=== PATIENT | male | born 1945 | race Two or more races ===

== ENCOUNTER 2025-03-08 00:14 | Inpatient (IN) | payer MEDICARE, OTHER ==
[~2025-03-08] VITALS: Ht 157.5 cm; Wt 68.0 kg
[2025-03-08] VITALS (50 sets, daily range): BP systolic 84–124; BP diastolic 48–78; TEMP 98–98.7; O2SAT 86–100
[2025-03-08 00:39] LABS: PLATELET COUNT (AUTO) 367 K/uL (150-450); RED BLOOD CELL COUNT(AUTO) 3.76 MIL/uL (4.5-6.0); RED CELL DISTRIBUTION WIDTH 13.6 % (11.5-15.0); WHITE BLOOD COUNT (AUTO) 13.6 K/uL (4.3-11.0)
[2025-03-08 00:51] LABS: CALCIUM, SERUM 8.3 mg/dL (8.5-10.1); CREATININE 1.3 mg/dL (0.6-1.3); SODIUM SERUM 138 mmol/L (136-145); UREA NITROGEN, BLOOD 43 mg/dL (7-18)
[2025-03-08 00:57] LABS: ASPARTATE AMINOTRANSFERASE 61 U/L (15-37); TOTAL PROTEIN, SERUM 7.1 g/dL (6.4-8.2)
[2025-03-08] MEDS: IPRATROPIUM NEB FS 0.5 MG/2.5 ML AMPUL.NEB NEB ONE (01:00)
[2025-03-08] MEDS: ALBUTEROL FS 2.5 MG/3 ML VIAL.NEB NEB ONE (01:00)
[2025-03-08] MEDS ORDERED: CEFTRIAXONE 1GM BAG (ER ONLY) 50 ML IV ONE (01:27)
[2025-03-08] MEDS ORDERED: DOXYCYCLINE 100 MG VIAL ONE (01:28)
[2025-03-08] MEDS: IV NS 0.9% 1,000 ML BAG IV ONE (01:44)
[2025-03-08] MEDS: CEFTRIAXONE 1 G in IV D5W 50 ML IV ONE (01:44)
[2025-03-08] MEDS ORDERED: IPRATROPIUM NEB FS 0.5 MG/2.5 ML AMPUL.NEB ONE (01:52)
[2025-03-08] MEDS ORDERED: ALBUTEROL FS 2.5 MG/3 ML VIAL.NEB ONE (01:52)
[2025-03-08] MEDS: DOXYCYCLINE 100 MG in IV D5W 100 ML IV ONE (02:00)
[2025-03-08] MEDS ORDERED: SENN-261 PO (04:42)
[2025-03-08] MEDS ORDERED: FERR324T4 PO (04:42)
[2025-03-08] MEDS ORDERED: ERGO500093 PO (04:42)
[2025-03-08] MEDS ORDERED: ASCO500C18 PO (04:42)
[2025-03-08] MEDS ORDERED: AMLO2.5T4 PO (04:42)
[2025-03-08] MEDS ORDERED: ASPI-1420 PO (04:42)
[2025-03-08] MEDS ORDERED: ATOR40TA PO (04:42)
[2025-03-08] MEDS ORDERED: MAG HYDROX/AL HYDROX/SIMETH 30 ML UDC PO PRN (06:30)
[2025-03-08] MEDS ORDERED: DOSING PER PHARMACY-CEFEPIME IVPB XX PRN (06:30)
[2025-03-08] MEDS ORDERED: ONDANSETRON HCL/PF 4 MG/2 ML VIAL IVP PRN (06:30)
[2025-03-08] MEDS ORDERED: MAGNESIUM HYDROXIDE 30 ML UDC PO PRN (06:30)
[2025-03-08] MEDS ORDERED: IPRATROPIUM NEB FS 0.5 MG/2.5 ML AMPUL.NEB NEB PRN (06:30)
[2025-03-08] MEDS ORDERED: ALBUTEROL FS 2.5 MG/3 ML VIAL.NEB NEB PRN (06:30)
[2025-03-08] MEDS ORDERED: ENOXAPARIN SODIUM 40 MG/0.4 ML DISP.SYRIN SQ SCH (07:00)
[2025-03-08] MEDS ORDERED: ALBUTEROL FS 2.5 MG/3 ML VIAL.NEB NEB SCH (07:35)
[2025-03-08] MEDS: IPRATROPIUM NEB FS 0.5 MG/2.5 ML AMPUL.NEB NEB SCH (07:35)
[2025-03-08] MEDS: CEFEPIME 2 GM in IV D5W 100 ML IV SCH (08:49)
[2025-03-08 09:07] LABS: ABG BASE EXCESS -3.7 mmol/L (-2.0-3.0); ABG OXYGEN SATURATION 84.6 % (94.0-98.0); ABG PCO2 29.4 mmHg (35.0-48.0); ABG PH 7.440 (7.350-7.450); ABG PO2 48.5 mmHg (83.0-108.0); ABG TOTAL HEMOGLOBIN 10.4 G/dL (13.5-17.5); FLOW, BLOOD GAS 40.00 L/min (0.00-30.00); FRACTIONATED INSPIRED OXYGEN 100.0 %
[2025-03-08] MEDS: DOXYCYCLINE 100 MG in IV D5W 100 ML IV SCH (09:34)
[2025-03-08 10:10] LABS: IRON, SERUM 26.0 ug/dl (50-175)
[2025-03-08 10:14] LABS: ABG BASE EXCESS -4.4 mmol/L (-2.0-3.0); ABG OXYGEN SATURATION 93.2 % (94.0-98.0); ABG PCO2 29.1 mmHg (35.0-48.0); ABG PH 7.431 (7.350-7.450); ABG PO2 70.5 mmHg (83.0-108.0); ABG TOTAL HEMOGLOBIN 10.6 G/dL (13.5-17.5); FLOW, BLOOD GAS 40.00 L/min (0.00-30.00); FRACTIONATED INSPIRED OXYGEN 100.0 %; SITE, ABG RIGHT RADIAL
[2025-03-08 10:52] LABS: LDL 26.0 mg/dL (0-99)
[2025-03-08] MEDS: IV NS 0.9% 1,000 ML IV PRN (14:49)
[2025-03-09] VITALS (43 sets, daily range): BP systolic 98–129; BP diastolic 52–95; TEMP 98–98.8; O2SAT 94–100
[2025-03-09 04:32] LABS: PLATELET COUNT (AUTO) 328 K/uL (150-450); RED BLOOD CELL COUNT(AUTO) 3.35 MIL/uL (4.5-6.0); RED CELL DISTRIBUTION WIDTH 13.3 % (11.5-15.0); WHITE BLOOD COUNT (AUTO) 14.8 K/uL (4.3-11.0)
[2025-03-09 04:44] LABS: INR 1.06 (0.91-1.10)
[2025-03-09 04:46] LABS: CREATINE KINASE, TOTAL 35.0 U/L (39-308)
[2025-03-09 04:47] LABS: ASPARTATE AMINOTRANSFERASE 37.0 U/L (15-37); CALCIUM, SERUM 8.3 mg/dL (8.5-10.1); CREATININE 0.9 mg/dL (0.6-1.3); PHOSPHORUS 3.7 mg/dL (2.5-4.9); SODIUM SERUM 140.0 mmol/L (136-145); TOTAL PROTEIN, SERUM 6.5 g/dL (6.4-8.2); UREA NITROGEN, BLOOD 46.0 mg/dL (7-18)
[2025-03-09 08:11] LABS: ABG BASE EXCESS -4.9 mmol/L (-2.0-3.0); ABG OXYGEN SATURATION 96.7 % (94.0-98.0); ABG PCO2 29.2 mmHg (35.0-48.0); ABG PH 7.422 (7.350-7.450); ABG PO2 95.7 mmHg (83.0-108.0); ABG TOTAL HEMOGLOBIN 10.6 G/dL (13.5-17.5); FLOW, BLOOD GAS 40.00 L/min (0.00-30.00); FRACTIONATED INSPIRED OXYGEN 100.0 %; SITE, ABG RIGHT RADIAL
[2025-03-09] MEDS: ACETYLCYSTEINE 10% SOLN 400 MG/4 ML VIAL NEB SCH (14:58)
[2025-03-09 18:13] LABS: PROTEIN, BODY FLUID 4.2 G/DL
[2025-03-09 20:05] LABS: APPEARANCE,SPUN,BODY FLUID CLEAR (CLEAR); TOTAL VOLUME,BODY FLUID 165 mL; WBC, BODY FLUID 8719 /cu. mm. (0-200)
[2025-03-09 20:53] LABS: MONOCYTES,BODY FLUID 5 %
[2025-03-10] VITALS (39 sets, daily range): BP systolic 92–133; BP diastolic 49–98; TEMP 98–98.4; O2SAT 92–100
[2025-03-10 04:53] LABS: PLATELET COUNT (AUTO) 306 K/uL (150-450); RED BLOOD CELL COUNT(AUTO) 3.68 MIL/uL (4.5-6.0); RED CELL DISTRIBUTION WIDTH 14.0 % (11.5-15.0); WHITE BLOOD COUNT (AUTO) 17.4 K/uL (4.3-11.0)
[2025-03-10 04:56] LABS: INR 1.02 (0.91-1.10)
[2025-03-10 05:06] LABS: ASPARTATE AMINOTRANSFERASE 31.0 U/L (15-37); CALCIUM, SERUM 8.6 mg/dL (8.5-10.1); CREATININE 0.7 mg/dL (0.6-1.3); PHOSPHORUS 3.2 mg/dL (2.5-4.9); SODIUM SERUM 144.0 mmol/L (136-145); TOTAL PROTEIN, SERUM 6.3 g/dL (6.4-8.2); UREA NITROGEN, BLOOD 42.0 mg/dL (7-18)
[2025-03-10 05:12] LABS: PTH, INTACT 23 pg/mL (15-65)
[2025-03-10] MEDS: Z GUARD REMEDY 4 OZ OINT TP SCH (09:41)
[2025-03-10 15:07] LABS: *SPE A/G RATIO 0.5 (0.7-1.7); *SPE ALBUMIN 1.8 g/dL (2.9-4.4); *SPE ALPHA-1-GLOBULIN 0.6 g/dL (0.0-0.4); *SPE ALPHA-2-GLOBULIN 1.2 g/dL (0.4-1.0); *SPE BETA GLOBULIN 0.9 g/dL (0.7-1.3); *SPE GLOBULIN, TOTAL 3.7 g/dL (2.2-3.9); *SPE M-SPIKE 0.2 g/dL (Not Observed); *SPE PROTEIN TOTAL 5.5 g/dL (6.0-8.5); *SPEGAMMA GLOBULIN 1.0 g/dL (0.4-1.8)
[2025-03-10] MEDS: IV NS 0.9% 250 ML IV PRN (22:10)
[2025-03-11] VITALS (25 sets, daily range): BP systolic 88–137; BP diastolic 49–97; TEMP 98.3; O2SAT 93–100
[2025-03-11 04:35] LABS: PLATELET COUNT (AUTO) 281 K/uL (150-450); RED BLOOD CELL COUNT(AUTO) 3.48 MIL/uL (4.5-6.0); RED CELL DISTRIBUTION WIDTH 13.8 % (11.5-15.0); WHITE BLOOD COUNT (AUTO) 14.3 K/uL (4.3-11.0)
[2025-03-11 04:45] LABS: INR 1.14 (0.91-1.10)
[2025-03-11 04:54] LABS: ASPARTATE AMINOTRANSFERASE 20.0 U/L (15-37); CALCIUM, SERUM 8.3 mg/dL (8.5-10.1); CREATININE 0.7 mg/dL (0.6-1.3); PHOSPHORUS 2.6 mg/dL (2.5-4.9); SODIUM SERUM 143.0 mmol/L (136-145); TOTAL PROTEIN, SERUM 5.9 g/dL (6.4-8.2); UREA NITROGEN, BLOOD 36.0 mg/dL (7-18)
[2025-03-11 05:42] LABS: LYMPHOCYTES % (MANUAL) 6 % (16-48); MONOCYTES % (MANUAL) 4 % (0-11.0); NEUTROPHILS % (MANUAL) 90 (42-76); PLATELET ESTIMATE ADEQUATE
[2025-03-11] MEDS: SILVER SULFADIAZINE 50 GM JAR TP SCH (08:44)
[2025-03-11] MEDS: Z GUARD REMEDY 4 OZ OINT TP PRN (08:45)
[2025-03-11] MEDS ORDERED: SILVER SULFADIAZINE CREAM 400 GM JAR TP SCH (09:00)
[2025-03-11] MEDS: POTASSIUM CHLORIDE 20 MEQ POWDER PACKET PO SCH (11:04)
[2025-03-12] VITALS (15 sets, daily range): BP systolic 100–136; BP diastolic 52–78; TEMP 97.7–98.8; O2SAT 96–100
[2025-03-12 07:15] LABS: PLATELET COUNT (AUTO) 281 K/uL (150-450); RED BLOOD CELL COUNT(AUTO) 3.29 MIL/uL (4.5-6.0); RED CELL DISTRIBUTION WIDTH 13.9 % (11.5-15.0); WHITE BLOOD COUNT (AUTO) 16.3 K/uL (4.3-11.0)
[2025-03-12 07:32] LABS: INR 1.09 (0.91-1.10)
[2025-03-12 07:37] LABS: ASPARTATE AMINOTRANSFERASE 25.0 U/L (15-37); CALCIUM, SERUM 7.9 mg/dL (8.5-10.1); CREATININE 0.6 mg/dL (0.6-1.3); PHOSPHORUS 2.1 mg/dL (2.5-4.9); SODIUM SERUM 143.0 mmol/L (136-145); TOTAL PROTEIN, SERUM 5.7 g/dL (6.4-8.2); UREA NITROGEN, BLOOD 30.0 mg/dL (7-18)
[2025-03-12] MEDS: NEUTRA PHOS 1 POWD.PACKET PO ONE (16:13)
[2025-03-13] VITALS (19 sets, daily range): BP systolic 99–125; BP diastolic 53–75; TEMP 98.1–99.1; O2SAT 95–100
[2025-03-13 06:21] LABS: INR 1.14 (0.91-1.10)
[2025-03-13 06:22] LABS: PLATELET COUNT (AUTO) 265 K/uL (150-450); RED BLOOD CELL COUNT(AUTO) 3.16 MIL/uL (4.5-6.0); RED CELL DISTRIBUTION WIDTH 13.5 % (11.5-15.0); WHITE BLOOD COUNT (AUTO) 15.6 K/uL (4.3-11.0)
[2025-03-13 06:25] LABS: ASPARTATE AMINOTRANSFERASE 24.0 U/L (15-37); CALCIUM, SERUM 7.8 mg/dL (8.5-10.1); CREATININE 0.7 mg/dL (0.6-1.3); PHOSPHORUS 2.7 mg/dL (2.5-4.9); SODIUM SERUM 142.0 mmol/L (136-145); TOTAL PROTEIN, SERUM 5.3 g/dL (6.4-8.2); UREA NITROGEN, BLOOD 25.0 mg/dL (7-18)
[2025-03-13] MEDS: POTASSIUM CHLORIDE 20 MEQ TAB.PRT.SR PO SCH (10:06)
[2025-03-13] MEDS: BUMETANIDE INJ 8 MG in IV NS 0.9% 48 ML IV ONE (10:08)
[2025-03-13] MEDS: Magnesium 1GM/D5W 100ML PREMIX 100 ML IV SCH (11:05)
[2025-03-14] VITALS (15 sets, daily range): BP systolic 109–130; BP diastolic 60–70; TEMP 97.9–99.4; O2SAT 93–99
[2025-03-14 06:34] LABS: INR 1.17 (0.91-1.10)
[2025-03-14 06:35] LABS: PLATELET COUNT (AUTO) 341 K/uL (150-450); RED BLOOD CELL COUNT(AUTO) 3.55 MIL/uL (4.5-6.0); RED CELL DISTRIBUTION WIDTH 13.5 % (11.5-15.0); WHITE BLOOD COUNT (AUTO) 19.3 K/uL (4.3-11.0)
[2025-03-14 06:52] LABS: ASPARTATE AMINOTRANSFERASE 26.0 U/L (15-37); CALCIUM, SERUM 8.0 mg/dL (8.5-10.1); CREATININE 0.8 mg/dL (0.6-1.3); PHOSPHORUS 3.6 mg/dL (2.5-4.9); SODIUM SERUM 139.0 mmol/L (136-145); TOTAL PROTEIN, SERUM 6.0 g/dL (6.4-8.2); UREA NITROGEN, BLOOD 30.0 mg/dL (7-18)
[2025-03-14 11:13] LABS: LYMPHOCYTES % (MANUAL) 4 % (16-48); MONOCYTES % (MANUAL) 1 % (0-11.0); NEUTROPHILS % (MANUAL) 95 (42-76); PLATELET ESTIMATE ADEQUATE
[2025-03-15] VITALS (16 sets, daily range): BP systolic 100–127; BP diastolic 56–62; TEMP 97.9–99.2; O2SAT 93–99
[2025-03-15 06:35] LABS: PLATELET COUNT (AUTO) 367 K/uL (150-450); RED BLOOD CELL COUNT(AUTO) 3.46 MIL/uL (4.5-6.0); RED CELL DISTRIBUTION WIDTH 13.5 % (11.5-15.0); WHITE BLOOD COUNT (AUTO) 19.5 K/uL (4.3-11.0)
[2025-03-15 06:43] LABS: INR 1.14 (0.91-1.10)
[2025-03-15 06:55] LABS: ASPARTATE AMINOTRANSFERASE 30.0 U/L (15-37); CALCIUM, SERUM 8.2 mg/dL (8.5-10.1); CREATININE 0.8 mg/dL (0.6-1.3); PHOSPHORUS 3.4 mg/dL (2.5-4.9); SODIUM SERUM 136.0 mmol/L (136-145); TOTAL PROTEIN, SERUM 6.2 g/dL (6.4-8.2); UREA NITROGEN, BLOOD 30.0 mg/dL (7-18)
[2025-03-15 12:48] LABS: LYMPHOCYTES % (MANUAL) 11 % (16-48); MONOCYTES % (MANUAL) 1 % (0-11.0); NEUTROPHILS % (MANUAL) 88 (42-76); PLATELET ESTIMATE ADEQUATE
[2025-03-16] VITALS (16 sets, daily range): BP systolic 101–133; BP diastolic 55–75; TEMP 97.9–98.4; O2SAT 92–100
[2025-03-16 06:30] LABS: PLATELET COUNT (AUTO) 400 K/uL (150-450); RED BLOOD CELL COUNT(AUTO) 2.68 MIL/uL (4.5-6.0); RED CELL DISTRIBUTION WIDTH 13.0 % (11.5-15.0); WHITE BLOOD COUNT (AUTO) 23.4 K/uL (4.3-11.0)
[2025-03-16 06:36] LABS: ASPARTATE AMINOTRANSFERASE 46.0 U/L (15-37); CALCIUM, SERUM 8.3 mg/dL (8.5-10.1); CREATININE 0.7 mg/dL (0.6-1.3); INR 0.97 (0.91-1.10); PHOSPHORUS 3.4 mg/dL (2.5-4.9); SODIUM SERUM 137.0 mmol/L (136-145); TOTAL PROTEIN, SERUM 6.2 g/dL (6.4-8.2); UREA NITROGEN, BLOOD 28.0 mg/dL (7-18)
[2025-03-17] VITALS (16 sets, daily range): BP systolic 99–143; BP diastolic 45–81; TEMP 97.6–98.8; O2SAT 92–99
[2025-03-17 06:42] LABS: PLATELET COUNT (AUTO) 374 K/uL (150-450); RED BLOOD CELL COUNT(AUTO) 2.97 MIL/uL (4.5-6.0); RED CELL DISTRIBUTION WIDTH 13.1 % (11.5-15.0); WHITE BLOOD COUNT (AUTO) 18.8 K/uL (4.3-11.0)
[2025-03-17 06:48] LABS: INR 1.17 (0.91-1.10)
[2025-03-17 06:58] LABS: CALCIUM, SERUM 8.2 mg/dL (8.5-10.1); CREATININE 0.9 mg/dL (0.6-1.3); SODIUM SERUM 137.0 mmol/L (136-145); UREA NITROGEN, BLOOD 29.0 mg/dL (7-18)
[2025-03-18] VITALS (15 sets, daily range): BP systolic 88–111; BP diastolic 41–60; TEMP 97.5–208.2; O2SAT 93–98
[2025-03-18 07:10] LABS: PLATELET COUNT (AUTO) 383 K/uL (150-450); RED BLOOD CELL COUNT(AUTO) 2.87 MIL/uL (4.5-6.0); RED CELL DISTRIBUTION WIDTH 13.2 % (11.5-15.0); WHITE BLOOD COUNT (AUTO) 19.6 K/uL (4.3-11.0)
[2025-03-18 07:16] LABS: ASPARTATE AMINOTRANSFERASE 28.0 U/L (15-37); CALCIUM, SERUM 8.2 mg/dL (8.5-10.1); CREATININE 0.8 mg/dL (0.6-1.3); INR 1.22 (0.91-1.10); PHOSPHORUS 2.8 mg/dL (2.5-4.9); SODIUM SERUM 136.0 mmol/L (136-145); TOTAL PROTEIN, SERUM 5.9 g/dL (6.4-8.2); UREA NITROGEN, BLOOD 29.0 mg/dL (7-18)
[2025-03-18] MEDS: MAGNESIUM OXIDE 400 MG TABLET PO ONE (12:59)
[2025-03-18] MEDS ORDERED: MIDODRINE HCL (5MG) 5 MG TABLET PO PRN (16:00)
[2025-03-18] MEDS: MIDODRINE HCL (5MG) 5 MG TABLET PO PRN (16:04)
[2025-03-19] VITALS (18 sets, daily range): BP systolic 96–130; BP diastolic 56–61; TEMP 97.4–98.1; O2SAT 92–100
[2025-03-19 06:37] LABS: PLATELET COUNT (AUTO) 397 K/uL (150-450); RED BLOOD CELL COUNT(AUTO) 2.91 MIL/uL (4.5-6.0); RED CELL DISTRIBUTION WIDTH 13.0 % (11.5-15.0); WHITE BLOOD COUNT (AUTO) 18.2 K/uL (4.3-11.0)
[2025-03-19 07:40] LABS: ASPARTATE AMINOTRANSFERASE 45.0 U/L (15-37); CALCIUM, SERUM 8.1 mg/dL (8.5-10.1); CREATININE 0.7 mg/dL (0.6-1.3); PHOSPHORUS 2.6 mg/dL (2.5-4.9); SODIUM SERUM 135.0 mmol/L (136-145); TOTAL PROTEIN, SERUM 5.8 g/dL (6.4-8.2); UREA NITROGEN, BLOOD 28.0 mg/dL (7-18)
[2025-03-20] VITALS (16 sets, daily range): BP systolic 102–126; BP diastolic 45–65; TEMP 97.7–99.1; O2SAT 96–100
[2025-03-20] MEDS: CEFTRIAXONE 2 G in IV D5W 100 ML IV SCH (13:46)
[2025-03-20] MEDS ORDERED: CEFTRIAXONE 2 G in IV NS 0.9% 100 ML IV SCH (14:00)
[2025-03-21] VITALS (16 sets, daily range): BP systolic 98–117; BP diastolic 49–58; TEMP 97.7–98.3; O2SAT 95–100
[2025-03-21 06:19] LABS: PLATELET COUNT (AUTO) 402 K/uL (150-450); RED BLOOD CELL COUNT(AUTO) 2.66 MIL/uL (4.5-6.0); RED CELL DISTRIBUTION WIDTH 13.1 % (11.5-15.0); WHITE BLOOD COUNT (AUTO) 13.7 K/uL (4.3-11.0)
[2025-03-21 06:32] LABS: ASPARTATE AMINOTRANSFERASE 21.0 U/L (15-37); CALCIUM, SERUM 8.3 mg/dL (8.5-10.1); CREATININE 0.8 mg/dL (0.6-1.3); PHOSPHORUS 3.3 mg/dL (2.5-4.9); SODIUM SERUM 135.0 mmol/L (136-145); TOTAL PROTEIN, SERUM 6.1 g/dL (6.4-8.2); UREA NITROGEN, BLOOD 24.0 mg/dL (7-18)
[2025-03-22] VITALS (15 sets, daily range): BP systolic 112–130; BP diastolic 58–65; TEMP 98.2–98.5; O2SAT 93–100
[2025-03-22 16:23] LABS: PLATELET COUNT (AUTO) 412 K/uL (150-450); RED BLOOD CELL COUNT(AUTO) 3.22 MIL/uL (4.5-6.0); RED CELL DISTRIBUTION WIDTH 13.1 % (11.5-15.0); WHITE BLOOD COUNT (AUTO) 11.2 K/uL (4.3-11.0)
[2025-03-22 16:49] LABS: CALCIUM, SERUM 8.5 mg/dL (8.5-10.1); CREATININE 1.0 mg/dL (0.6-1.3); PHOSPHORUS 3.1 mg/dL (2.5-4.9); SODIUM SERUM 137.0 mmol/L (136-145); UREA NITROGEN, BLOOD 23.0 mg/dL (7-18)
[2025-03-23] VITALS (15 sets, daily range): BP systolic 110–134; BP diastolic 57–69; TEMP 98–99.5; O2SAT 95–100
[2025-03-23 06:52] LABS: PLATELET COUNT (AUTO) 317 K/uL (150-450); RED BLOOD CELL COUNT(AUTO) 3.04 MIL/uL (4.5-6.0); RED CELL DISTRIBUTION WIDTH 13.0 % (11.5-15.0); WHITE BLOOD COUNT (AUTO) 8.9 K/uL (4.3-11.0)
[2025-03-23 07:39] LABS: CALCIUM, SERUM 8.5 mg/dL (8.5-10.1); CREATININE 0.8 mg/dL (0.6-1.3); PHOSPHORUS 3.5 mg/dL (2.5-4.9); SODIUM SERUM 137.0 mmol/L (136-145); UREA NITROGEN, BLOOD 21.0 mg/dL (7-18)
[2025-03-23] MEDS: ACETAMINOPHEN 325 MG TABLET PO PRN (20:32)
[2025-03-24] VITALS (11 sets, daily range): BP systolic 101–124; BP diastolic 46–52; TEMP 97.3–98.4; O2SAT 93–100
[2025-03-24] MEDS: ALBUTEROL FS 2.5 MG/3 ML VIAL.NEB NEB PRN (10:49)
[2025-03-24 13:29] LABS: CALCIUM, SERUM 8.5 mg/dL (8.5-10.1); CREATININE 0.9 mg/dL (0.6-1.3); PHOSPHORUS 3.8 mg/dL (2.5-4.9); SODIUM SERUM 138.0 mmol/L (136-145); UREA NITROGEN, BLOOD 20.0 mg/dL (7-18)
[2025-03-24 13:31] LABS: PLATELET COUNT (AUTO) 355 K/uL (150-450); RED BLOOD CELL COUNT(AUTO) 3.37 MIL/uL (4.5-6.0); RED CELL DISTRIBUTION WIDTH 13.1 % (11.5-15.0); WHITE BLOOD COUNT (AUTO) 9.5 K/uL (4.3-11.0)
== END 2025-03-24 19:08 | DRG 166 ==
LOC: ER 00:16 → TELE1 01:23 → TELE-TD 06:56 → ICU 07:26 → TELE-TD 03-11 11:16 → TELE1 03-12 09:16 → MEDSG1 03-13 10:08
PROVIDERS: ADMIT Nurse Practitioner Acute Care
PROC: 0W993ZZ Drainage of Right Pleural Cavity, Percutaneous Approach (ICD-10-PCS; principal; 2025-03-09)
PROC: 0B9K30Z Drainage of Right Lung with Drainage Device, Percutaneous Approach (ICD-10-PCS; 2025-03-10)
PROC: 05HD33Z Insertion of Infusion Device into Right Cephalic Vein, Percutaneous Approach (ICD-10-PCS; 2025-03-24)
DX: J69.0 Pneumonitis due to inhalation of food and vomit (principal); J86.9 Pyothorax without fistula; J96.21 Acute and chronic respiratory failure with hypoxia; R78.81 Bacteremia; R17 Unspecified jaundice; E87.3 Alkalosis; E86.0 Dehydration; J91.8 Pleural effusion in other conditions classified elsewhere; Z93.0 Tracheostomy status; B95.3 Streptococcus pneumoniae as the cause of diseases classified elsewhere; J13 Pneumonia due to Streptococcus pneumoniae; I10 Essential (primary) hypertension; D50.9 Iron deficiency anemia, unspecified; J98.11 Atelectasis; E87.1 Hypo-osmolality and hyponatremia; Z79.82 Long term (current) use of aspirin; Z79.899 Other long term (current) drug therapy; Z74.01 Bed confinement status; E78.5 Hyperlipidemia, unspecified; T21.21XA Burn of second degree of chest wall, initial encounter; T31.0 Burns involving less than 10% of body surface; X10.0XXA Contact with hot drinks, initial encounter; Y92.89 Other specified places as the place of occurrence of the external cause; M89.8X9 Other specified disorders of bone, unspecified site; Z86.73 Personal history of transient ischemic attack (TIA), and cerebral infarction without residual deficits; Z78.1 Physical restraint status
CPT/HCPCS: 36415; 36600; 71045-TC; 71250-TC; 75989; 80048-TC; 80053-TC; 80061-TC; 82550-TC; 82728-TC; 82803-TC; 82962-TC; 83540-TC; 83735-TC; 83970; 84100-TC; 84155; 84165; 84439-TC; 84443-TC; 85025-TC; 85027-TC; 85610-TC; 85730-TC; 86140-TC; 86713; 87040-TC; 87070-TC; 87075-TC; 87102-TC; 87186-TC; 88112-TC; 88305-TC; 88312-TC; 89051-TC; 92526; 92611; 93307-TC; 94760-TC; 94762-TC; 94799-TC; 97110-TC; 97530-TC; 99082-TC; A4223; A4349; A6213; A6223; A6253; A6254; G0378; J0692; J0696; J2919; J3475; J3490; J7030; J7050; J7060